=== PATIENT | female | born 1965 | race Caucasian/White ===

== ENCOUNTER 2016-10-02 06:39 | Day surgery (SDC) | payer BC ==
--- NOTE | ~2016-10-02 | EGD ---
EGD REPORT [facility] [address] [id number] NAME: ROYCE CHOI : [birth year] STATUS : REG [facility] [place]#: [id number] AGE: 51 ADM/REG DATE : 10/02/16 MR#: [id number] REPORT SERV DATE: 10/02/16 DICTATED BY: TRISHA DAN DATE: 10/02/16 REPORT STATUS : Draft TRANSCRIBED BY: [facility] DATE: 10/02/16 Endoscopy Center Patient Name: Royce Choi Date of : 1965 Attending MD: TRISHA DAN, Procedure Date No Time: 10/02/2016 Procedure: Colonoscopy Indications: Screening for colorectal malignant neoplasm, This is the patient's first colonoscopy Referring MD: AMOL GOLD Medicines: Propofol per Anesthesia Complications: No immediate complications. Estimated blood loss: None. Procedure: Pre-Anesthesia Assessment: - ASA Grade Assessment: II - A patient with mild systemic disease. After I obtained informed consent, the scope was passed under direct vision. Throughout the procedure, the patient's blood pressure, pulse, and oxygen saturations were monitored continuously. The [facility] [id number] was introduced through the anus and advanced to the terminal ileum. The colonoscopy was performed with ease. The patient tolerated the procedure well. The quality of the bowel preparation was good. Findings: The perianal exam was abnormal. Findings include non-thrombosed external hemorrhoids and skin tags. The terminal ileum appeared normal. A sessile polyp was found in the proximal transverse colon. The polyp was 6 mm in size. The polyp was removed with a cold snare. Resection and retrieval were complete. Estimated blood loss: none. Multiple small-mouthed diverticula were found in the sigmoid colon, in the descending colon, in the transverse colon and in the ascending colon. Non-bleeding internal hemorrhoids were found during retroflexion and were small and Grade I (internal hemorrhoids that do not prolapse). Impression: - Non-thrombosed external hemorrhoids and perianal skin tags found on perianal exam. - The examined portion of the ileum was normal. - One 6 mm polyp in the proximal transverse colon. Resected and retrieved. - Diverticulosis in the sigmoid colon, in the descending colon, in the transverse colon and in the ascending colon. - Non-bleeding internal hemorrhoids. EGD REPORT [place] [id number] [facility] [place]. [address] NAME: ROYCE CHOI : [birth year] STATUS : REG [facility] [place]#: [id number] AGE: 51 ADM/REG DATE : 10/02/16 MR#: [id number] REPORT SERV DATE: 10/02/16 DICTATED BY: TRISHA DAN DATE: 10/02/16 REPORT STATUS : Draft TRANSCRIBED BY: [employer] DATE: 10/02/16 Recommendation: - Patient has a contact number available for emergencies. The signs and symptoms of potential delayed complications were discussed with the patient. Return to normal activities tomorrow. Written discharge instructions were provided to the patient. - High fiber diet. - Discharge patient to home (with escort). - Continue present medications. - Await pathology results. - Return to GI clinic in 4 weeks to review pathology w nurse practioner. - Repeat colonoscopy in 5 years for surveillance. Procedure Code(s): --- Professional --- 18588, Colonoscopy, flexible, proximal to splenic flexure; with removal of tumor(s), polyp(s), or other lesion(s) by snare technique Diagnosis Code(s): --- Professional --- K64.4, Residual hemorrhoidal skin tags K64.0, First degree hemorrhoids K57.30, Diverticulosis of large intestine without perforation or abscess without bleeding D12.3, Benign neoplasm of transverse colon Z12.11, Encounter for screening for malignant neoplasm of colon CPT copyright 2013 [employer]. All rights reserved. The codes documented in this report are preliminary and upon rooming house operator review may be revised to meet current compliance requirements. TRISHA DAN, 10/02/2016 10:14 AM This report has been signed electronically. Number of Addenda: 0 Note Initiated On: 10/02/2016 9:33 AM Scope Withdrawal Time 0 hours 10 minutes 2 seconds [id number] [id number]
[~2016-10-02 06:39] MED LIST: LEXAPRO5 MG PO
== END 2016-10-02 23:59 | disposition home or self-care (01) ==
LOC: DMU 06:39
PROVIDERS: Internal Medicine Gastroenterology
PROC: 0DBL8ZZ Excision of Transverse Colon, Via Natural or Artificial Opening Endoscopic (ICD-10-PCS; principal; 2016-10-02 10:00)
DX: Z12.11 Encounter for screening for malignant neoplasm of colon (principal); D12.3 Benign neoplasm of transverse colon; K64.4 Residual hemorrhoidal skin tags; K64.0 First degree hemorrhoids; K57.30 Diverticulosis of large intestine without perforation or abscess without bleeding; J45.909 Unspecified asthma, uncomplicated; R01.1 Cardiac murmur, unspecified; F41.9 Anxiety disorder, unspecified; Z98.51 Tubal ligation status; Z98.890 Other specified postprocedural states; Z88.0 Allergy status to penicillin; Z91.02 Food additives allergy status; Z91.018 Allergy to other foods; Z79.899 Other long term (current) drug therapy
CPT/HCPCS: 84703; 88305